=== PATIENT | female | born 1980 | race Hispanic/Latino ===

== ENCOUNTER 2016-08-25 23:30 | Inpatient (IN) | payer OTHER ==
[~2016-08-25] VITALS: Ht 160 cm; Wt 86.2 kg
[2016-08-25 23:25] VITALS: BP 121/65
--- NOTE | 2016-08-25 23:25 | NUR ---
PT ARRIVED AMBULATORY FROM HOME WITH FAMILY AT SIDE WITH C/O CONTRACTIONS EVERY 10-15 MIN STARTING AT 2130. PT STATES HAD ONE VISIT IN [facility] WHERE SHE RECEIVE A POSITIVE TEST AND SALLY OF 09/09/16 PER LAST LMP. PT STATES THAT THEY STATED SINCE HER FIRST VISIT SHE WAS OVER 20 WEEKS THAT THEY WOULD NOT TAKE HER AND SHE WAS REFERRED TO [place]. PT STATES WAS UNABLE TO EVERY ATTEND [place] D/T TRANSPORATION ISSUE. PT DENIES LOF OR VAGINAL BLEEDING AND STATES GOOD MOVEMENT. HEIGHT AND WEIGHT ATTAINED. DOA ATTAINED AND REVEIWED WITH PT. WILL CONTINUE TO MONITOR.
[~2016-08-25 23:30] MED LIST: IBUPROFEN600 MG PO; PRE-NATAL PO; TYLENOL325 MG PO
[2016-08-25] MEDS ORDERED: TUMS500 MG PO (23:59)
[2016-08-26] VITALS (21 sets, daily range): BP systolic 108–134; BP diastolic 47–80
[2016-08-26] MEDS ORDERED: TUMS500 MG PO
[2016-08-26 00:04] LABS: URINE BILIRUBIN - DIPSTICK NEGATIVE (NEGATIVE); URINE BLOOD DIPSTICK NEGATIVE (NEGATIVE); URINE CLARITY CLEAR; URINE COLOR YELLOW; URINE GLUCOSE - DIPSTICK NEGATIVE (NEGATIVE); URINE KETONE NEGATIVE (NEGATIVE); URINE NITRITE - DIPSTICK NEGATIVE (Negative); URINE PH 6.5 (4.5-8.0); URINE PROTEIN - DIPSTICK NEGATIVE (NEG-TRACE); URINE SPECIFIC GRAVITY 1.015; URINE UROBILINOGEN - DIPSTICK 0.2 E.U./dL (0.2)
--- NOTE | 2016-08-26 00:08 | NUR ---
DR. SHERWOOD CONTACT GIVEN PT'S NO CARE, , SVE /-2 POSTERIOR, CONTRACTIONS EVERY 6-7 MIN. ORDERS RECEIVED TO ADMIT PT TO OBSERVATION, LABS & OB US TO CONFIRM TERM .
[2016-08-26 00:17] LABS: URINE LEUK ESTERASE SMALL (NEGATIVE)
[2016-08-26 00:34] LABS: URINE BACTERIA FEW hpf; URINE RBC 0-2 RBC/hpf (0-5); URINE SQUAMOUS EPITHELIAL CELL FEW EPI/hpf (0-FEW)
--- NOTE | 2016-08-26 01:08 | NUR ---
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
[2016-08-26 01:22] LABS: HEMATOCRIT 33.9 % (37.0-47.0); HEMOGLOBIN 11.5 g/dl (12.0-16.0); IMMATURE GRANULOCYTES 0.5 % (0.0-1.0); MEAN CELL VOLUME 88.3 fL CALC (80.0-100.0); MEAN CORPUSCULAR HGB 29.9 pG CALC (26.0-32.0); MEAN CORPUSCULAR HGB CONC 33.9 g/L CALC (32.0-36.0); NEUT# 6.81 thou/uL (2.00-7.15); RED BLOOD COUNT 3.84 mill/uL (4.20-5.60); RED CELL DISTRI WIDTH 12.4 % (11.5-15.5)
[2016-08-26 01:36] LABS: ALBUMIN 3.6 g/dL (3.2-5.0); ALKALINE PHOSPHATASE 138 u/l (38-126); ANION GAP 14 (6-22 (CALC)); BILIRUBIN, TOTAL 0.3 mg/dL (0.0-1.4); BUN 13 mg/dL (7-17); BUN/CREATININE RATIO 22 (12-20 (CALC)); CALCIUM 9.1 mg/dL (8.4-10.2); CARBON DIOXIDE 21 mmol/l (22-30); CHLORIDE 107 mmol/l (95-108); CREATININE 0.6 mg/dL (0.5-1.0); GFR > 60 ML/MIN (>=60 (CALC)); GFR FOR AFR.AMER. > 60 ML/MIN (>=60 (CALC)); GLUCOSE 89 mg/dL (65-105); POTASSIUM 3.8 mmol/l (3.5-5.1); SGOT/AST 21 u/l (14-36); SGPT/ALT 19 u/l (9-52); SODIUM 138 mmol/l (137-146)
--- NOTE | 2016-08-26 02:04 | NUR ---
PT RETURNED FROM US. EFM APPLIED.
--- NOTE | 2016-08-26 02:13 | NUR ---
DR. SHERWOOD AT BEDSIDE. SVE PERFORMED 2.
[2016-08-26 02:57] LABS: BARBITURATES NEGATIVE (NEGATIVE); COCAINE NEGATIVE (NEGATIVE); METHADONE NEGATIVE (NEGATIVE); TETRAHYDROCANNABIONOL NEGATIVE (NEGATIVE); TRICYLIC ANTIDEPRESSANTS NEGATIVE (NEGATIVE)
[2016-08-26 02:58] LABS: OXCYCODONE NEGATIVE (NEGATIVE)
--- NOTE | 2016-08-26 05:02 | NUR ---
PT RESTING QUIETLY IN BED WITH EYES CLOSED. PT STATES PAIN IS ABOUT THE SAME SINCE CAME IN. PT OOB TO BR TO VOID. PT DENIES ANY OTHER NEEDS AT THIS TIME. ENCOURAGED PT TO CALL WITH NEEDS OR CONCERNS.
--- NOTE | 2016-08-26 06:53 | NUR ---
RECEIVED REPORT FROM AILEEN YOUNG RN. PT IS RESTING QUIETLY AWAKE ON RIGHT SIDE. PT REPORTS ONLY SLIGHT TIGHTENING WITH CTX, AND OCCATION MINIMAL PAIN. NO NEEDS AT THIS TIME.
--- NOTE | 2016-08-26 07:05 | NUR ---
PT UP TO BPR, VOIDED. THEN UP WALKING IN HALLS. CONDITION IS STABLE. NO NEEDS AT THIS TIME.
--- NOTE | 2016-08-26 07:40 | NUR ---
PT RETURNED TO BED, TOOK MINIMAL CLEAR LIQUIDS. DR SHERWOOD IN TO SEE PT, SVE DONE, 5 CM. AROM PREFORMED, CLEAR FLUID. PERICARE DONE. PT THEN SITTING UP IN BED. CONDITION IS STABLE. ADMIT TO IN PT STATUS. SHE IS CALLING SIG OTHER ON PHONE TO UPDATE HIM. PT STATES PAIN HAS INCREASED TO 5/10, TOLERATING WELL WITH BREATHING. NO FURTHER NEEDS AT THIS TIME.
--- NOTE | 2016-08-26 07:57 | NUR ---
GAVE PCN. PT UP IN BED. CONDITION IS STABLE. CTX ARE MODERATE. PAIN IS STILL 7/10. TOLERATING WELL WITH BREATHING.
--- NOTE | 2016-08-26 08:20 | NUR ---
PT UP TO [facility], VOIDED. THEN TRANSFERRED TO # 1. AMBULATORY. THEN PT UP SITTING ON EDGE OF BED. PAIN REMAINS /, CTX MOD/STRONG WITH SOFT RESTING TONE. BREATHING WELL WITH CTX. TOLERATING WELL. CONDITION STABLE. PT STATES SHE DOES NOT WANT TO HAVE PITOCIN AT THIS TIME. SHE STATES IF HER LABOR DOES NOT PROGRESS SHE WILL POSSIBLE HAVE IT. SHE WILL LET ME KNOW IF SHE CHANGES HER MIND.
--- NOTE | 2016-08-26 09:18 | NUR ---
PT REMAINS UP SITTING ON EDGE OF BED. TOLERATING CTX WELL WITH BREATHING, STILL NOT WANTING PITOCIN OR PAIN MEDS. CTX ARE COMING MORE FREQUENTLY. PAIN IS 7/10. CTX MOD/STRONG. SOFT RESTING TONE. CATAGORY 1 TRACING. NO NEEDS AT THIS TIME.NO LABOR SUPPORT SO RN AT BEDSIDE FREQUENTLY AND SUPPORTIVE.
--- NOTE | 2016-08-26 09:28 | NUR ---
PT UP TO BRP, VOIDED. STATES NEEDS TO STOOL. RETURNED TO BED, SVE DONE, 5 CM/80%/-1 STATION. PT RETURNED TO BRP FOR BM.
--- NOTE | 2016-08-26 09:33 | NUR ---
NOW GOING TO AMBULATE IN ROOM. CONDITION IS STABLE, NO NEEDS.
--- NOTE | 2016-08-26 09:33 | NUR ---
PT HAD NORMAL BM
--- NOTE | 2016-08-26 09:59 | NUR ---
PT STILL UP WALKING IN ROOM. NO NEEDS AT THIS TIME. PAIN STILL /10.
--- NOTE | 2016-08-26 10:16 | NUR ---
PT STANDING AT BEDSIDE, TEXTING. RESUMED EFM. NO FURTHER NEEDS AT THIS TIME.
--- NOTE | 2016-08-26 10:45 | NUR ---
D/C'ED EFM WHILE PT UP IN ROOM WALKING. NO NEEDS AT THIS TIME. PAIN 01/11. CTX MOD/STRONG WITH SOFT RESTING TONE. DOING WELL WITH CTX AND BREATHING. DISCUSSED PITOCIN AGAIN. STILL WAITING PER PT.
--- NOTE | 2016-08-26 11:01 | NUR ---
PT STILL UP WALKING IN ROOM. CONDITION IS STABLE. NO NEEDS AT THIS TIME.
--- NOTE | 2016-08-26 11:18 | NUR ---
PT REPORTED CTX BECOMING MORE FREQUENT AND INTENSE. PAIN IS NOW 9/10. SVE DONE, 6 CM / 90% / 0 STATION. VERTEX. CONDITION IS STABLE. PT NOW IN BED, SEMIFOWLERS. NO NEEDS AT THIS TIME. GOING TO TRY AND REST BETWEEN CTX FOR A LITTLE WHILE.
--- NOTE | 2016-08-26 11:55 | NUR ---
DR SHERWOOD IN TO SEE PT. SVE DONE, 8 CM, 100%, +1 STATION. INSTRUCTED PT TO CALL WITH ANY CHANGES AND URGE TO PUSH.
--- NOTE | 2016-08-26 12:00 | NUR ---
PT CALLED, HAS URGE TO PUSH, RN JOSE DAVID NO CHANGE. INSTRUCTED ON BREATHING WITH CTX, AND NO PUSHING YET. SHE STATES UNDERSTANDING, DOING WELL WITH BREATHING.
--- NOTE | 2016-08-26 12:08 | NUR ---
RN REMAINS AT BEDSIDE AND SUPPORTIVE. PT DOING VERY WELL WITH PAIN BREATHING THROUGH CTX, NO PUSHING YET, A LOT OF PRESSURE.
--- NOTE | 2016-08-26 12:21 | NUR ---
PT STATES STRONG URGE TO PUSH. SVE DONE, COMPLETE AND +2. CALLED DR SHERWOOD AND NURSERY NURSE TO ROOM FOR DELIVERY. REASSURED PT.
--- NOTE | 2016-08-26 12:23 | NUR ---
DR PRESLEY PERRY AND INSTRUCTING PT TO PUSH. GOOD PUSHING EFFORTS BY PT.
--- NOTE | 2016-08-26 12:25 | NUR ---
OF VIGOROUS MALE . NO LACERATIONS.
--- NOTE | 2016-08-26 12:30 | NUR ---
OF INTACT PLACENTA. PITOCIN STARTED, PO CYTOTEC GIVEN ORDERED. PERICARE DONE. PT UP IN BED BONDING SKIN TO SKIN WITH . CONDITION IS STABLE. FUNDUS FIRM AT 2FBB. LOCHEA IS LIGHT.
--- NOTE | 2016-08-26 12:45 | NUR ---
PT UP IN BED, BONDING WITH . CONDITION IS STABLE, LIGHT LOCHEA, FUNDUS FIRM AT 2 FBB. NO NEEDS AT THIS TIME.
--- NOTE | 2016-08-26 13:00 | NUR ---
PT DOING WELL. CONDITION IS STABLE. FUNDUS REMAINS FIRM AT 2 FBBU. LOCHEA LIGHT. NO NEEDS AT THIS TIME.
--- NOTE | 2016-08-26 13:15 | NUR ---
PT UP IN BED . CONDITION IS STABLE. LOCHEA REMAINS LIGHT, FUNDUS FIRM AT 2FBB. NO NEEDS AT THIS TIME.
--- NOTE | 2016-08-26 13:30 | NUR ---
CONDITION IS STABLE, LOCHEA IS LIGHT, FUNDUS FIRM AT 2FBB. PT IV SALINE LOCKED AND UP TO SHOWER, RN REMAINS NEARBY. NO NEEDS AT THIS TIME.
--- NOTE | 2016-08-26 13:45 | NUR ---
PT FINISHED SHOWER, TOLERATED WELL. VOIDED SMALL AMOUNT IN SHOWER. AMBULATED TO NURSERY TO SEE INFANT THEN TO ROOM. REVIEWED PERICARE AND INSTRUCTIONS. PT UP IN BED EATING LUNCH. CONDITION IS STABLE. NO PAIN, QUESTIONS OR CONCERNS AT THIS TIME.
--- NOTE | 2016-08-26 14:30 | NUR ---
PT IS UP IN BED, FINISHED LUNCH. TALKING ON PHONE. CONDITION IS STABLE. PT STATES NO PAIN, QUESTIONS OR CONCERNS AT THIS TIME. FUNDUS IS FIRM AT 2FBB. LOCHEA IS LIGHT.
--- NOTE | 2016-08-26 14:40 | NUR ---
REPORTED OFF TO JESUS BERKOWITZ RN.
--- NOTE | 2016-08-26 14:48 | NUR ---
ASSUMED CARE OF PT. PT LAYING IN BED, RESTING. MEDICATED WITH MOTRIN FOR CRAMPING PAIN, DENIES ANY OTHER NEEDS AT THIS TIME. APPLE JUICE GIVEN WELL.
--- NOTE | 2016-08-26 15:30 | NUR ---
VS DONE, STABLE. FF AT 2 ABOVE UMBILICUS. ENCOURAGED PT TO GET UP AND VOID, PT VERBALIZED UNDERSTANDING. DENIES ANY NEEDS AT THIS TIME.
--- NOTE | 2016-08-26 16:46 | NUR ---
PT RESTING IN BED AT THIS TIME, REQUESTED FOOD, SANDWICH GIVEN. VOIDING WELL, BLEEDING IS LIGHT. DENIES ANY OTHER NEEDS.
--- NOTE | 2016-08-26 17:38 | NUR ---
PT RESTING IN BED, DENIES ANY NEEDS AT THIS TIME.
--- NOTE | 2016-08-26 18:00 | NUR ---
IVF DONE INFUSING, PT SALINE LOCKED AT THIS TIME.
--- NOTE | 2016-08-26 18:45 | NUR ---
REPORT GIVEN TO Alex SOUZA RN.
--- NOTE | 2016-08-26 19:00 | NUR ---
BEDSIDE REPORT RECEIVED FROM ANTON AGUSTIN USING SBAR FORMAT. POC REVIEWED. PT DENIES PAIN. CALL LIGHT IN REACH.
--- NOTE | 2016-08-26 21:20 | NUR ---
PT RESTING IN BED HOLDING . NO S/S OF DISTRESS. BREATHING UNLABORED. ASSESSMENT AND VITALS CHARTED. PT WITH C/O ABD CRAMPING 10/11. PRN MOTRIN GIVEN--SEE EMAR. POC AND EDUCATION PROVIDED. PT VERBALIZED UNDERSTANDING. CALL LIGHT IN REACH.
--- NOTE | 2016-08-27 05:20 | NUR ---
PT RESTING IN BED HOLDING IN NO APPARENT DISTRESS. CBC DRAWN FROM RIGHT AC USING #23 BUTTERFLY NEEDLE X1 ATTEMPT. PT TOLERATED WELL. PT DENIES PAIN. CALL LIGHT IN REACH.
[2016-08-27 05:28] LABS: HEMATOCRIT 32.5 % (37.0-47.0); HEMOGLOBIN 10.9 g/dl (12.0-16.0); IMMATURE GRANULOCYTES 0.4 % (0.0-1.0); MEAN CELL VOLUME 89.3 fL CALC (80.0-100.0); MEAN CORPUSCULAR HGB 29.9 pG CALC (26.0-32.0); MEAN CORPUSCULAR HGB CONC 33.5 g/L CALC (32.0-36.0); NEUT# 5.67 thou/uL (2.00-7.15); RED BLOOD COUNT 3.64 mill/uL (4.20-5.60); RED CELL DISTRI WIDTH 12.5 % (11.5-15.5)
[2016-08-27 06:00] VITALS: BP 106/54
--- NOTE | 2016-08-27 06:00 | NUR ---
VITALS CHARTED. CBC RESULTS RECV'D AND WNL. IV SITE DC'D. NO REDNESS OR SWELLING AT SITE. CATHETER INTACT. POC REVIEWED WITH PT. PREPARING REPORT FOR ONCOMING SHIFT.
--- NOTE | 2016-08-27 07:00 | NUR ---
RECEIVED REPORT FROM SCOOTER SOUZA RN. PT IS IN BED INFANT, NO NEEDS AT THIS TIME. CONDITION IS STABLE.
--- NOTE | 2016-08-27 07:53 | NUR ---
PT IS RESTING QUIETLY IN BED WITH EYES CLOSED. NO S/S OF DISTRESS NOTED.
--- NOTE | 2016-08-27 08:00 | NUR ---
DR SHERWOOD ROUNDED ON PT, OBTAINED D/C ORDERS.
--- NOTE | 2016-08-27 08:30 | NUR ---
ASSESSMENT CHARTED. CONDITION IS STABLE. REVIEWED ALL DISCHARGE TEACHING. GAVE PT PRINTED INFO ON MOTRIN RX. PT UNSURE OF WHICH CONTROL SHE WANTS, GAVE MULTIPLE PRINTED INFO ON DIFFERENT CHOICES.
[2016-08-27] MEDS ORDERED: IBUPROFEN600 MG PO (09:19)
--- NOTE | 2016-08-27 14:30 | NUR ---
Discharge instructions given and reviewed. Pt. verbalizes understanding. Discharged in good condition via Wheelchair to Home accompanied by friend.
== END 2016-08-27 14:30 | disposition home or self-care (01) | DRG 775 ==
LOC: OB 23:30 → OBOP 23:30 → OB 23:30 → OBOP 08-26 00:07 → OB 08-26 00:08
PROVIDERS: ADMIT Obstetrics & Gynecology; ATTEND Obstetrics & Gynecology
PROC: 10E0XZZ Delivery of Products of Conception, External Approach (ICD-10-PCS; principal; 2016-08-26)
PROC: 10907ZC Drainage of Amniotic Fluid, Therapeutic from Products of Conception, Via Natural or Artificial Opening (ICD-10-PCS; 2016-08-26)
DX: O80 Encounter for full-term uncomplicated delivery (principal); Z37.0 Single live birth; Z3A.37 37 weeks gestation of pregnancy
CPT/HCPCS: J2540